=== PATIENT | male | born 1955 | race Caucasian/White ===

== ENCOUNTER 2017-08-29 12:34 | Emergency (ER) | payer MEDICAID ==
[~2017-08-29] VITALS: Ht 165.1 cm; Wt 61.5 kg
[2017-08-29 14:14] LABS: BASOPHILS % 0.9 % (0.0-2.0); EOSINOPHILS % 0.7 % (0.0-5.0); HEMATOCRIT. 42.2 % (42.0-52.0); HEMOGLOBIN. 14.7 g/dL (14.0-18.0); LYMPHOCYTES % 20.9 % (20.0-50.0); MEAN CORPUSCULAR HEMOGLOBIN 31.8 pg (28.0-32.0); MEAN CORPUSCULAR VOLUME 91.1 fL (80.0-94.0); MEAN PLATELET VOLUME 8.4 fl (7.4-10.4); MONOCYTES % 6.6 % (2.0-8.0); NEUTROPHILS % 70.9 % (40.0-76.0); PLATELET 229 x1000/uL (130-400); RED BLOOD CELL COUNT 4.63 mill/uL (4.7-6.1); RED CELL DISTRIBUTION WIDTH 12.6 % (11.6-14.6)
[2017-08-29 14:23] LABS: CHLORIDE 98 mEq/L (98-107)
[2017-08-29] MEDS ORDERED: SODIUM CHLORIDE 0.9% 1,000 ML IV ONE (16:24)
[2017-08-29] MEDS ORDERED: IBUPROFEN 400MG TABLET PO ONE (16:30)
[2017-08-29] MEDS ORDERED: INSULIN REGULAR (HUMULIN R) 300UNITS/3ML SUBCUT ONE (16:30)
[2017-08-29 16:32] LABS: CLARITY URINE CLEAR (CLEAR); COLOR URINE YELLOW (YELLOW); KETONES URINE NEGATIVE (NEGATIVE); LEUKOCYTE ESTERASE URINE NEGATIVE (NEGATIVE); NITRITE URINE NEGATIVE (NEGATIVE); OCCULT BLOOD URINE NEGATIVE (NEGATIVE); PROTEIN URINE NEGATIVE (NEGATIVE); SPECIFIC GRAVITY URINE 1.049 (1.005-1.030); UROBILINOGEN URINE 0.2 E.U./dL (0.2-1.0)
[2017-08-29 17:10] LABS: BETA HYDROXYBUTYRATE 0.1 mMol/L (0.0-0.3)
[2017-08-29 19:08] VITALS: BP 124/69
== END 2017-08-29 19:09 | disposition home or self-care (01) ==
LOC: ER 13:23
DX: E11.65 Type 2 diabetes mellitus with hyperglycemia (principal); G62.9 Polyneuropathy, unspecified; I10 Essential (primary) hypertension; E78.00 Pure hypercholesterolemia, unspecified; I25.2 Old myocardial infarction; Z79.4 Long term (current) use of insulin
CPT/HCPCS: 36415; 71045; 80053; 81003; 82010; 82962; 84484; 85025; 93005; 96360; 96361; 96372; 99285; J1815; J7030

== ENCOUNTER 2017-09-29 11:42 | Emergency (ER) | payer MEDICAID ==
[~2017-09-29] VITALS: Ht 162.6 cm; Wt 63.0 kg
[2017-09-29 12:59] LABS: BASOPHILS % 1.1 % (0.0-2.0); EOSINOPHILS % 0.6 % (0.0-5.0); HEMATOCRIT. 38.5 % (42.0-52.0); HEMOGLOBIN. 13.2 g/dL (14.0-18.0); LYMPHOCYTES % 25.6 % (20.0-50.0); MEAN CORPUSCULAR HEMOGLOBIN 31.3 pg (28.0-32.0); MEAN CORPUSCULAR VOLUME 91.3 fL (80.0-94.0); MEAN PLATELET VOLUME 8.8 fl (7.4-10.4); MONOCYTES % 7.6 % (2.0-8.0); NEUTROPHILS % 65.1 % (40.0-76.0); PLATELET 181 x1000/uL (130-400); RED BLOOD CELL COUNT 4.22 mill/uL (4.7-6.1); RED CELL DISTRIBUTION WIDTH 13.2 % (11.6-14.6)
[2017-09-29 13:08] LABS: CHLORIDE 101 mEq/L (98-107)
[2017-09-29 13:14] LABS: PHOSPHORUS 3.4 mg/dL (2.5-4.9)
[2017-09-29] MEDS ORDERED: GABAPENTIN 300MG CAPSULE PO ONE (13:30)
[2017-09-29] MEDS ORDERED: INSULIN GLARGINE UD 100 UNITS/ML SYR SUBCUT ONE (13:30)
[2017-09-29 14:08] VITALS: BP 144/83
== END 2017-09-29 14:34 | disposition home or self-care (01) ==
LOC: ER 11:42
DX: E11.40 Type 2 diabetes mellitus with diabetic neuropathy, unspecified (principal); E11.65 Type 2 diabetes mellitus with hyperglycemia; I25.2 Old myocardial infarction; I10 Essential (primary) hypertension; Z87.891 Personal history of nicotine dependence
CPT/HCPCS: 36415; 80053; 82962; 83735; 84100; 85025; 96372; 99284; J1815

== ENCOUNTER 2024-04-11 02:47 | Emergency (ER) | payer MEDICAID, OTHER ==
[~2024-04-11] VITALS: Ht 165.1 cm; Wt 67.0 kg
[2024-04-11 02:49] VITALS: O2SAT 94
[2024-04-11 02:52] VITALS: BP 181/103; PULSE 94; RESP 18; TEMP 98.5; O2SAT 99
[2024-04-11] MEDS ORDERED: CEPH500T MT (05:40)
[2024-04-11] MEDS: LIDOCAINE HCL/PF 1% 10 MG/ML 5ML VIAL INFIL NR (05:45)
[2024-04-11] MEDS: LIDOCAINE HCL/PF 1% 10 MG/ML 5ML VIAL INFIL ONE (05:46)
[2024-04-11] MEDS: BACITRACIN ZINC OINT UDPKT TOP ONE (05:46)
[2024-04-11] MEDS: BACITRACIN ZINC OINT UDPKT TOP NR (05:46)
== END 2024-04-11 06:45 | disposition home or self-care (01) ==
LOC: ER 02:47
DX: S62.600A Fracture of unspecified phalanx of right index finger, initial encounter for closed fracture (principal); W23.0XXA Caught, crushed, jammed, or pinched between moving objects, initial encounter; Y93.89 Activity, other specified; Y92.89 Other specified places as the place of occurrence of the external cause; Y99.8 Other external cause status
CPT/HCPCS: 99283; 73140; 12001; J3490